=== PATIENT | female | born 1990 ===

== ENCOUNTER 2022-02-28 13:43 | Emergency (ER) | payer SELFPAY ==
[2022-02-28] MEDS ORDERED: BACTRIM DS TAB1 EACH PO (15:55)
[2022-02-28] MEDS ORDERED: BACTROBAN OINT22 GM EXT (15:55)
[2022-02-28] MEDS ORDERED: IBUPROFEN600 MG PO (15:55)
== END 2022-02-28 16:40 | disposition home or self-care (01) ==
LOC: ER1 13:43
DX: L02.11 Cutaneous abscess of neck (principal); F17.210 Nicotine dependence, cigarettes, uncomplicated
CPT/HCPCS: 10060; 87070; 87205; 99283